=== PATIENT | male | born 1955 | race Caucasian/White ===

== ENCOUNTER → 2021-02-03 | Outpatient (CLI) | payer MEDICARE ==
[~2021-02-03] MED LIST: LISI10TA22; METH25TAB
== END ==
LOC: M LABSMTC 10:06
PROVIDERS: ATTEND Anesthesiology
DX: Z20.828 Contact with and (suspected) exposure to other viral communicable diseases (principal); Z11.59 Encounter for screening for other viral diseases

== ENCOUNTER 2021-02-08 09:57 | Day surgery (SDC) | payer MEDICARE ==
[~2021-02-08] VITALS: Ht 175.3 cm; Wt 73.0 kg
[~2021-02-08 09:57] MED LIST changes: +NS 1,000 ML IV SCH
[2021-02-08] MEDS ORDERED: LIDOCAINE 2% 100MG/5ML SDV (FOR ANES.) As Ordered ONE (11:04)
[2021-02-08] MEDS ORDERED: propofoL 200 MG/20 ML VIAL As Ordered ONE ×2 (11:04→11:24)
--- NOTE | 2021-02-08 11:31 | ROOR ---
Patient Name: Jose R Penaloza Procedure Date: 02/08/2021 11:14 AM Date of : 1955 Age: 65 Room: [facility] Gender: Male Note Status: Finalized Procedure: Colonoscopy Indications: Screening in patient at increased risk: Colorectal cancer in mother before age 60 Providers: Fabricio Velasquez MD Referring MD: Carter HERRING MD Requesting Provider: Medicines: Monitored Anesthesia Care Complications: No immediate complications. Procedure: Pre-Anesthesia Assessment: - The heart rate, respiratory rate, oxygen saturations, blood pressure, adequacy of pulmonary ventilation, and response to care were monitored throughout the procedure. The Colonoscope was introduced through the anus and advanced to the terminal ileum, with identification of the appendiceal orifice and IC valve. The colonoscopy was performed without difficulty. The patient tolerated the procedure well. The quality of the bowel preparation was good. Findings: The perianal and digital rectal examinations were normal. A 5 mm polyp was found in the splenic flexure. The polyp was sessile. The polyp was removed with a cold snare. Resection and retrieval were complete. Mild sigmoid diverticulosis and small internal hemorrhoids. Anal papilla(e) were hypertrophied. The exam was otherwise without abnormality on direct and retroflexion views. Impression: - One 5 mm polyp at the splenic flexure, removed with a cold snare. Resected and retrieved. - Mild sigmoid diverticulosis and small internal hemorrhoids. - The examination was otherwise normal on direct and retroflexion views. Recommendation: - Repeat colonoscopy in 5 years for surveillance. Procedure Code(s): --- Professional --- 22280, Colonoscopy, flexible; with removal of tumor(s), polyp(s), or other lesion(s) by snare technique Diagnosis Code(s): --- Professional --- K62.89, Other specified diseases of anus and rectum K63.5, Polyp of colon Z80.0, Family history of malignant neoplasm of digestive organs CPT copyright 2019 [employer]. All rights reserved. The codes documented in this report are preliminary and upon educational administration teacher review may be revised to meet current compliance requirements. Fabricio Velasquez MD Fabricio Velasquez MD 02/08/2021 11:30:43 AM Electronically signed by Fabricio Velasquez MD Number of Addenda: 0 Note Initiated On: 02/08/2021 11:14 AM Estimated Blood Loss: Estimated blood loss: none.
[2021-02-08 11:50] VITALS: BP 119/77
== END 2021-02-08 12:10 | disposition home or self-care (01) ==
LOC: M OPP 09:57
PROVIDERS: ATTEND Internal Medicine Gastroenterology
DX: Z12.11 Encounter for screening for malignant neoplasm of colon (principal); Z80.0 Family history of malignant neoplasm of digestive organs; D12.3 Benign neoplasm of transverse colon; K57.30 Diverticulosis of large intestine without perforation or abscess without bleeding; K62.89 Other specified diseases of anus and rectum; K64.8 Other hemorrhoids; Z79.899 Other long term (current) drug therapy

== ENCOUNTER 2023-03-29 11:19 | Outpatient (CLI) | payer MEDICARE, OTHER ==
[~2023-03-29] VITALS: Ht 175.3 cm; Wt 76.9 kg
[~2023-03-29 11:19] MED LIST changes: -NS 1,000 ML IV SCH
[2023-03-29 11:30] VITALS: BP 157/77; O2SAT 97
[2023-03-29] MEDS ORDERED: TEPROTUMUMAB TRBW IV ONE (12:00)
[2023-03-29] MEDS ORDERED: NS IV ONE (12:00)
[2023-03-29 14:20] VITALS: BP 116/71; O2SAT 97
[2023-03-29 14:40] VITALS: BP 129/74; O2SAT 98
== END 2023-03-29 14:40 | disposition home or self-care (01) ==
LOC: M INFU 11:19
PROVIDERS: ATTEND Ophthalmology
DX: E05.00 Thyrotoxicosis with diffuse goiter without thyrotoxic crisis or storm (principal)
CPT/HCPCS: 96365; J3241

== ENCOUNTER 2023-04-19 11:10 | Outpatient (CLI) | payer MEDICARE ==
[~2023-04-19] VITALS: Ht 175.3 cm; Wt 75.0 kg
[2023-04-19 11:10] VITALS: BP 130/71; O2SAT 95
[2023-04-19] MEDS ORDERED: TEPROTUMUMAB TRBW IV ONE ×2 (11:20→11:45)
[2023-04-19] MEDS ORDERED: NS IV ONE ×2 (11:20→11:45)
[2023-04-19 14:15] VITALS: BP 123/68; O2SAT 96
== END 2023-04-19 14:15 ==
LOC: M INFU 11:10
PROVIDERS: ATTEND Ophthalmology
DX: E05.00 Thyrotoxicosis with diffuse goiter without thyrotoxic crisis or storm (principal)
CPT/HCPCS: 96365; J3241

== ENCOUNTER 2023-05-10 11:20 | Outpatient (CLI) | payer MEDICARE ==
[~2023-05-10] VITALS: Ht 175.3 cm; Wt 75.8 kg
[2023-05-10 11:20] VITALS: BP 121/77; O2SAT 95
[2023-05-10] MEDS ORDERED: TEPROTUMUMAB TRBW IV ONE (11:45)
[2023-05-10] MEDS ORDERED: NS IV ONE (11:45)
[2023-05-10 13:55] VITALS: BP 125/77; O2SAT 96
== END 2023-05-10 14:00 ==
LOC: M INFU 11:20
PROVIDERS: ATTEND Ophthalmology
DX: E05.00 Thyrotoxicosis with diffuse goiter without thyrotoxic crisis or storm (principal)
CPT/HCPCS: 96365; J3241

== ENCOUNTER 2023-05-31 11:15 | Outpatient (CLI) | payer MEDICARE ==
[~2023-05-31] VITALS: Ht 175.3 cm; Wt 75.0 kg
[2023-05-31 11:18] VITALS: BP 128/76; O2SAT 94
[2023-05-31] MEDS ORDERED: NS IV ONE (11:30)
[2023-05-31] MEDS ORDERED: TEPROTUMUMAB TRBW IV ONE (11:30)
[2023-05-31 13:40] VITALS: BP 135/82; TEMP 36.7; O2SAT 97
== END 2023-05-31 13:40 ==
LOC: M INFU 11:15
PROVIDERS: ATTEND Ophthalmology
DX: E05.00 Thyrotoxicosis with diffuse goiter without thyrotoxic crisis or storm (principal)
CPT/HCPCS: 96365; J3241

== ENCOUNTER 2023-06-21 11:55 | Outpatient (CLI) | payer MEDICARE ==
[~2023-06-21] VITALS: Ht 175.3 cm; Wt 74.5 kg
[2023-06-21 11:55] VITALS: BP 124/73; O2SAT 96
[2023-06-21] MEDS ORDERED: TEPROTUMUMAB TRBW IV ONE (12:00)
[2023-06-21] MEDS ORDERED: NS IV ONE (12:00)
[2023-06-21 14:45] VITALS: BP 144/75; O2SAT 98
== END 2023-06-21 14:45 | disposition home or self-care (01) ==
LOC: M INFU 11:55
PROVIDERS: ATTEND Ophthalmology
DX: E05.00 Thyrotoxicosis with diffuse goiter without thyrotoxic crisis or storm (principal)
CPT/HCPCS: 96365; J3241

== ENCOUNTER 2023-08-09 12:25 | Outpatient (CLI) | payer MEDICARE, BC ==
[~2023-08-09] VITALS: Ht 175.3 cm; Wt 73.8 kg
[2023-08-09 12:25] VITALS: BP 154/70; O2SAT 97
[~2023-08-09 12:25] MED LIST changes: +NS IV ONE; +TEPROTUMUMAB TRBW IV ONE
[2023-08-09] MEDS ORDERED: TEPROTUMUMAB TRBW IV ONE (12:30)
[2023-08-09] MEDS ORDERED: NS IV ONE (12:30)
[2023-08-09 14:30] VITALS: BP 146/72; O2SAT 99
== END 2023-08-09 14:30 | disposition home or self-care (01) ==
LOC: M INFU 12:25
PROVIDERS: ATTEND Ophthalmology
DX: E05.00 Thyrotoxicosis with diffuse goiter without thyrotoxic crisis or storm (principal)
CPT/HCPCS: 96365; J3241

== ENCOUNTER 2023-08-30 11:00 | Outpatient (CLI) | payer MEDICARE ==
[~2023-08-30] VITALS: Ht 175.3 cm; Wt 75.0 kg
[~2023-08-30 11:00] MED LIST changes: -NS IV ONE; -TEPROTUMUMAB TRBW IV ONE
[2023-08-30 11:22] VITALS: BP 133/77; O2SAT 95
[2023-08-30] MEDS: TEPROTUMUMAB TRBW IV ONE (12:41)
[2023-08-30] MEDS: NS IV ONE (12:41)
[2023-08-30 13:45] VITALS: BP 155/81; O2SAT 97
== END 2023-08-30 13:45 ==
LOC: M INFU 11:00
PROVIDERS: ATTEND Ophthalmology
DX: E05.00 Thyrotoxicosis with diffuse goiter without thyrotoxic crisis or storm (principal)
CPT/HCPCS: 96365; J3241